=== PATIENT | male | born 1970 | race African-American/Black ===

== ENCOUNTER 2017-06-16 15:14 | Inpatient (IN) | payer OTHER ==
[2017-06-16 17:30] VITALS: BMI 43.3
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
[2017-06-16] MEDS ORDERED: MENTHOL/PHENOL 1 EACH UD MM PRN (19:00)
[2017-06-16] MEDS ORDERED: MAGNESIUM CITRATE 300 ML BOTTLE PO PRN (19:00)
[2017-06-16] MEDS ORDERED: NICOTINE POLACRILEX 4 MG GUM BC PRN (19:00)
[2017-06-16] MEDS ORDERED: P-EPHED 60MG/TRIPROLIDI 2.5MG TABLET PO PRN (19:00)
[2017-06-16] MEDS ORDERED: IBUPROFEN 400 MG TABLET (FP) PO PRN (19:00)
[2017-06-16] MEDS ORDERED: hydrOXYzine PAMOATE 50 MG CAPSULE (FP) PO PRN (19:00)
[2017-06-16] MEDS ORDERED: diphenhydrAMINE HCL 50 MG CAPSULE PO PRN (19:00)
[2017-06-16] MEDS ORDERED: ACETAMINOPHEN 325 MG TABLET (FP) PO PRN (19:00)
[2017-06-16] MEDS ORDERED: LOPERAMIDE HCL 2 MG CAPSULE PO PRN (19:00)
[2017-06-16] MEDS ORDERED: guaiFENesin/D-METHORPHAN HB 10 ML UNIT-DOSE CUPS PO PRN (19:00)
[2017-06-16] MEDS ORDERED: MAG HYDROX/AL HYDROX/SIMETH 30 ML UNIT-DOSE CUP PO PRN (19:00)
[2017-06-16] MEDS: THIAMINE HCL 100 MG TABLET (FP) PO SCH (23:11)
[2017-06-16 23:23] LABS: URINE APPEARANCE CLEAR; URINE BILIRUBIN NEGATIVE (NEGATIVE); URINE BLOOD NEGATIVE (NEGATIVE); URINE COLOR AMBER; URINE GLUCOSE (UA) NEGATIVE (NEGATIVE); URINE KETONE NEGATIVE (NEGATIVE); URINE LEUK ESTERASE NEGATIVE (NEGATIVE); URINE NITRITE NEGATIVE (NEGATIVE); URINE PROTEIN NEGATIVE (NEGATIVE); URINE UROBILINOGEN 4.0 E.U/dl mg/dL (0.2-1.0)
--- NOTE | 2017-06-17 09:57 | EKG ---
Test Reason : Blood Pressure : / mmHG Vent. Rate : 081 BPM Atrial Rate : 081 BPM P-R Int : 182 ms QRS Dur : 098 ms QT Int : 400 ms P-R-T Axes : 060 031 038 degrees QTc Int : 464 ms NORMAL SINUS RHYTHM NORMAL ECG NO PREVIOUS ECGS AVAILABLE Confirmed by PRADEEP SHAW MD ([id number]) on 06/17/2017 9:57:17 AM Referred By: Confirmed By:PRADEEP SHAW MD
[2017-06-17] MEDS: NICOTINE 21 MG/24 HOURS TOPICAL PATCH TD SCH (09:58)
[2017-06-17] MEDS: PRENATAL VITAMINS W/ FOLIC ACID TABLET (FP) PO SCH (09:58)
--- NOTE | 2017-06-17 13:42 | HP ---
Psychiatrist Admission - Data Date of interview: 06/17/17 Admission source: [facility] Identifying data: THis is the first 5n inpatient rehabilitation admission for this 47 year old single unemployed and domiciled AA male. Medical History: Reports a good physical health, smokes cigarettes 1 PPD. Psychiatric History: Patient denies. Physical/Sexual Abuse/Trauma History: Patient denies. 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 Vital Signs: Vital Signs - 24 hr 06/16/17 06/16/17 06/16/17 17:26 22:33 23:47 Temperature 98.6 F 98.6 F 98.6 F Pulse Rate 89 101 H 101 H Respiratory 20 20 20 Rate Blood Pressure 146/89 140/84 140/84 06/17/17 06/17/17 06/17/17 00:34 03:30 06:56 Temperature 97.8 F Pulse Rate 82 Respiratory 16 18 20 Rate Blood Pressure 121/70 Allergies/Adverse Reactions: Allergies Allergy/AdvReac Type Severity Reaction Status Date / Time No Known Allergies Allergy Verified 06/16/17 23:10 Date of last physical exam: 06/16/17 Concur with the findings of this exam: Yes - Substance Abuse/Tx History Hx Alcohol Use: Yes (started at age of 13, daily 3-6 packs beer daily) Hx Substance Use: Yes Substance Use Type: Cocaine (smoking crack daily $300, started at ge of 15) Hx Substance Use Treatment: Yes ([facility]) Mental Status Exam - Mental Status Exam Alert and Oriented to: Time, Place, Person Cognitive Function: Good Patient Appearance: Well Groomed Mood: Hopeful Affect: Appropriate, Mood Congruent Patient Behavior: Appropriate, Cooperative Speech Pattern: Clear, Appropriate Voice Loudness: Normal Thought Process: Intact, Goal Oriented Thought Disorder: Not Present Hallucinations: Denies Suicidal Ideation: Denies Homicidal Ideation: Denies Insight/Judgement: Fair Sleep: Well Appetite: Good Muscle strength/Tone: Normal Gait/Station: Normal Psychiatric Findings - Problem List ([place] 1, 2,3) (1) Nicotine dependence Current Visit: Yes Status: Acute Qualifiers: Nicotine product type: cigarettes Substance use status: in withdrawal Qualified Code(s): F17.213 - Nicotine dependence, cigarettes, with withdrawal; F17.213 - Nicotine dependence, cigarettes, with withdrawal (2) Cocaine dependence Current Visit: Yes Status: Acute (3) Alcohol dependence Current Visit: Yes Status: Acute - Initial Treatment Plan Initial Treatment Plan: monitor progress as needed.
[2017-06-17 15:45] LABS: MCHC 34.1 g/dl (32.0-35.9); MEAN CELL VOLUME 88.1 fl (80-96); MEAN PLT VOLUME 8.3 fl (7.5-11.1); PLATELET COUNT 269 K/MM3 (134-434); RDW 13.7 % (11.9-15.9); WHITE BLOOD COUNT 8.8 K/mm3 (4.0-10.0)
[2017-06-17 16:15] LABS: ALBUMIN 3.7 g/dl (3.4-5.0); ALK PHOS 133 U/L (45-117); ANION GAP 6 (8-16); BILIRUBIN,TOTAL 0.7 mg/dL (0.2-1.0); CALCIUM 8.7 mg/dL (8.5-10.1); CO2 29 mmol/L (21-32); CREATININE 1.2 mg/dL (0.7-1.3); GLUCOSE,RANDOM 127 mg/dL (74-106); SGOT/AST 23 U/L (15-37); SGPT/ALT 37 U/L (12-78); TOT PROT 7.3 g/dl (6.4-8.2)
[2017-06-17] MEDS: THIAMINE HCL 100 MG TABLET (FP) PO SCH (21:20)
[2017-06-18 00:29] LABS: HIV 1 & 2 AB NEGATIVE; HIV 1 AGp24 NEGATIVE
[2017-06-18] MEDS: PRENATAL VITAMINS W/ FOLIC ACID TABLET (FP) PO SCH (10:59)
[2017-06-18] MEDS: NICOTINE 21 MG/24 HOURS TOPICAL PATCH TD SCH (10:59)
[2017-06-18] MEDS ORDERED: TUBERCULIN PPD 5 TU/0.1ML VIAL ID ONE (17:04)
[2017-06-18] MEDS: THIAMINE HCL 100 MG TABLET (FP) PO SCH (21:34)
[2017-06-19] MEDS: NICOTINE 21 MG/24 HOURS TOPICAL PATCH TD SCH (09:45)
[2017-06-19] MEDS: PRENATAL VITAMINS W/ FOLIC ACID TABLET (FP) PO SCH (09:45)
[2017-06-19] MEDS: THIAMINE HCL 100 MG TABLET (FP) PO SCH (22:26)
[2017-06-20] MEDS: PRENATAL VITAMINS W/ FOLIC ACID TABLET (FP) PO SCH (10:11)
[2017-06-20] MEDS: NICOTINE 21 MG/24 HOURS TOPICAL PATCH TD SCH (10:11)
--- NOTE | 2017-06-20 18:02 | PN ---
S Progress Note Note: received nurse call that the patient has positive ppd chest x ray continue rehab
[2017-06-20] MEDS: THIAMINE HCL 100 MG TABLET (FP) PO SCH (21:19)
[2017-06-21] MEDS: NICOTINE 21 MG/24 HOURS TOPICAL PATCH TD SCH (09:12)
[2017-06-21] MEDS: PRENATAL VITAMINS W/ FOLIC ACID TABLET (FP) PO SCH (09:13)
[2017-06-21] MEDS: THIAMINE HCL 100 MG TABLET (FP) PO SCH (21:25)
[2017-06-22] MEDS: NICOTINE 21 MG/24 HOURS TOPICAL PATCH TD SCH (09:02)
[2017-06-22] MEDS: PRENATAL VITAMINS W/ FOLIC ACID TABLET (FP) PO SCH (09:02)
[2017-06-22] MEDS: THIAMINE HCL 100 MG TABLET (FP) PO SCH (21:58)
[2017-06-23] MEDS: NICOTINE 21 MG/24 HOURS TOPICAL PATCH TD SCH (11:31)
[2017-06-23] MEDS: PRENATAL VITAMINS W/ FOLIC ACID TABLET (FP) PO SCH (11:32)
[2017-06-23] MEDS: THIAMINE HCL 100 MG TABLET (FP) PO SCH (21:10)
[2017-06-24] MEDS: NICOTINE 21 MG/24 HOURS TOPICAL PATCH TD SCH (10:34)
[2017-06-24] MEDS: PRENATAL VITAMINS W/ FOLIC ACID TABLET (FP) PO SCH (10:34)
[2017-06-24] MEDS: THIAMINE HCL 100 MG TABLET (FP) PO SCH (21:28)
[2017-06-25] MEDS: NICOTINE 21 MG/24 HOURS TOPICAL PATCH TD SCH (10:09)
[2017-06-25] MEDS: PRENATAL VITAMINS W/ FOLIC ACID TABLET (FP) PO SCH (10:09)
[2017-06-25] MEDS: THIAMINE HCL 100 MG TABLET (FP) PO SCH (21:06)
[2017-06-26] MEDS: PRENATAL VITAMINS W/ FOLIC ACID TABLET (FP) PO SCH (09:57)
[2017-06-26] MEDS: NICOTINE 21 MG/24 HOURS TOPICAL PATCH TD SCH (09:57)
[2017-06-26] MEDS: MAGNESIUM HYDROX 2400MG/30ML ORAL SUSPENSION 30 ML CUP PO PRN (13:57)
[2017-06-26] MEDS: THIAMINE HCL 100 MG TABLET (FP) PO SCH (21:01)
[2017-06-27] MEDS: NICOTINE 21 MG/24 HOURS TOPICAL PATCH TD SCH (10:59)
[2017-06-27] MEDS: PRENATAL VITAMINS W/ FOLIC ACID TABLET (FP) PO SCH (10:59)
[2017-06-27] MEDS: THIAMINE HCL 100 MG TABLET (FP) PO SCH (21:09)
[2017-06-28] MEDS: PRENATAL VITAMINS W/ FOLIC ACID TABLET (FP) PO SCH (10:15)
[2017-06-28] MEDS: NICOTINE 21 MG/24 HOURS TOPICAL PATCH TD SCH (10:15)
[2017-06-28] MEDS: THIAMINE HCL 100 MG TABLET (FP) PO SCH (21:02)
[2017-06-29] MEDS: NICOTINE 21 MG/24 HOURS TOPICAL PATCH TD SCH (10:06)
[2017-06-29] MEDS: PRENATAL VITAMINS W/ FOLIC ACID TABLET (FP) PO SCH (10:06)
[2017-06-29] MEDS: MAGNESIUM HYDROX 2400MG/30ML ORAL SUSPENSION 30 ML CUP PO PRN (17:25)
[2017-06-29] MEDS: THIAMINE HCL 100 MG TABLET (FP) PO SCH (21:01)
[2017-06-30 06:38] VITALS: BP 131/95; PULSE 85; TEMP 98
--- NOTE | 2017-06-30 09:11 | PN ---
[facility] Progress Note Note: Patient has completed treatment today and was discharged today in stable condition, was referred to [facility].
== END 2017-06-30 07:20 | disposition home or self-care (01) | DRG 772 ==
LOC: YASAS 15:14 → Y5N 19:55
PROVIDERS: ADMIT Psychiatry & Neurology Psychiatry; ATTEND Psychiatry & Neurology Psychiatry
PROC: HZ42ZZZ Group Counseling for Substance Abuse Treatment, Cognitive-Behavioral (ICD-10-PCS; principal; 2017-06-16)
DX: F10.20 Alcohol dependence, uncomplicated (principal); F14.20 Cocaine dependence, uncomplicated; F17.213 Nicotine dependence, cigarettes, with withdrawal; R76.11 Nonspecific reaction to tuberculin skin test without active tuberculosis; E66.9 Obesity, unspecified; Z68.41 Body mass index [BMI] 40.0-44.9, adult
CPT/HCPCS: 36415; 71020-TC; 80053; 81003; 85027; 86593; 87389; 93005; 93010

== ENCOUNTER 2023-07-19 15:08 | Inpatient (IN) | payer OTHER ==
[2023-07-19 15:48] VITALS: BMI 39.3
[2023-07-19] MEDS ORDERED: BENZONATATE 200 MG CAPSULE PO PRN (18:30)
[2023-07-19] MEDS ORDERED: POLYETHYLENE GLYCOL (HEALTHYLAX) 3350 17 GM PACKET PO PRN (18:30)
[2023-07-19] MEDS ORDERED: IBUPROFEN 600 MG TABLET (FP) PO PRN (18:30)
[2023-07-19] MEDS ORDERED: IBUPROFEN 400 MG TABLET (FP) PO PRN (18:30)
[2023-07-19] MEDS ORDERED: BISMUTH SUBSALICYLATE 524 MG/30 ML PO PRN (18:30)
[2023-07-19] MEDS ORDERED: ACETAMINOPHEN 325 MG TABLET (FP) PO PRN (18:30)
[2023-07-19] MEDS ORDERED: MAG HYDROX/AL HYDROX/SIMETH 30 ML UNIT-DOSE CUP PO PRN (18:30)
[2023-07-19] MEDS ORDERED: hydrOXYzine PAMOATE 25 MG CAPSULE (FP) PO PRN (18:30)
[2023-07-19] MEDS ORDERED: NALOXONE HCL 0.4 MG/ML VIAL IM PRN (18:30)
[2023-07-19] MEDS ORDERED: METHOCARBAMOL 500 MG TABLET PO PRN (18:30)
[2023-07-19] MEDS ORDERED: DICYCLOMINE HCL 10 MG CAPSULE PO PRN (18:30)
[2023-07-19] MEDS ORDERED: guaiFENesin 600 MG TABLET.ER (FP) PO PRN (18:30)
[2023-07-19] MEDS ORDERED: LOPERAMIDE HCL 2 MG CAPSULE PO PRN (18:30)
[2023-07-19] MEDS ORDERED: chlordiazePOXIDE HCL 25 MG CAPSULE PO PRN (18:30)
[2023-07-19] MEDS ORDERED: BENZOCAINE/MENTHOL (CHLORASEPTIC ) LOZENGE MM PRN (18:30)
[2023-07-19] MEDS ORDERED: ONDANSETRON *ODT* 4 MG TABLET SL PRN (18:30)
[2023-07-19] MEDS ORDERED: NALOXONE HCL (KLOXXADO) 8 MG SPRAY NS PRN (18:30)
[2023-07-19] MEDS: CLOPIDOGREL BISULFATE 75 MG TABLET (FP) PO SCH (20:06)
[2023-07-19] MEDS: chlordiazePOXIDE HCL 25 MG CAPSULE PO SCH (22:43)
[2023-07-19] MEDS: MELATONIN 5 MG TABLETS PO SCH (22:44)
[2023-07-19] MEDS: THIAMINE HCL 100 MG TABLET (FP) PO SCH (22:45)
[2023-07-20] MEDS: chlordiazePOXIDE HCL 25 MG CAPSULE PO SCH ×4 (05:12→22:33)
[2023-07-20] MEDS ORDERED: ALBUTEROL SO4 0.083% IH SOL 2.5 MG/3 ML VIAL.NEB. NEB PRN (09:01)
[2023-07-20 09:51] LABS: HEMATOCRIT 36.1 % (35.4-49); HEMOGLOBIN 12.3 GM/dL (11.7-16.9); MCH 29.8 pg (25.7-33.7); MCHC 33.9 g/dl (32.0-35.9); MEAN CELL VOLUME 87.8 fl (80-96); MEAN PLT VOLUME 7.8 fl (7.5-11.1); PLATELET COUNT 227 10^3/uL (134-434); RBC 4.12 M/mm3 (4.00-5.60); RDW 13.9 % (11.9-15.9); WHITE BLOOD COUNT 9.4 K/mm3 (4.0-10.0)
[2023-07-20 10:05] LABS: CHLORIDE 106 mmol/L (98-107); POTASSIUM 3.6 mmol/L (3.5-5.1); SODIUM 141 mmol/L (136-145)
[2023-07-20 10:09] LABS: ALBUMIN 3.1 g/dl (3.4-5.0); ANION GAP 7 mmol/L (4-13); BLOOD UREA NITROGEN 11.1 mg/dL (7-18); CO2 28 mmol/L (21-32); GLUCOSE,RANDOM 104 mg/dL (74-106)
[2023-07-20 10:12] LABS: CREATININE 0.9 mg/dL (0.55-1.3); SGPT/ALT 51 U/L (13-61)
[2023-07-20 10:13] LABS: SGOT/AST 114 U/L (15-37)
[2023-07-20 10:14] LABS: BILIRUBIN,TOTAL 0.9 mg/dL (0.2-1)
[2023-07-20 10:15] LABS: ALK PHOS 96 U/L (45-117)
[2023-07-20] MEDS: CLOPIDOGREL BISULFATE 75 MG TABLET (FP) PO SCH (10:20)
[2023-07-20] MEDS: PRENATAL VITAMINS W/ FOLIC ACID TABLET (FP) PO SCH (10:21)
[2023-07-20] MEDS: ALBUTEROL SO4 HFA INHALER IH PRN (17:40)
[2023-07-20] MEDS: MAGNESIUM HYDROX 2400MG/30ML ORAL SUSPENSION 30 ML CUP PO PRN (17:43)
[2023-07-20] MEDS: MELATONIN 5 MG TABLETS PO SCH (22:33)
[2023-07-20] MEDS: THIAMINE HCL 100 MG TABLET (FP) PO SCH (22:33)
[2023-07-21] MEDS: chlordiazePOXIDE HCL 25 MG CAPSULE PO SCH ×4 (06:09→22:58)
[2023-07-21] MEDS: PRENATAL VITAMINS W/ FOLIC ACID TABLET (FP) PO SCH (10:18)
[2023-07-21] MEDS: guaiFENesin 200 MG/10 ML 10 ML UNIT-DOSE CUPS PO PRN (10:18)
[2023-07-21] MEDS: CLOPIDOGREL BISULFATE 75 MG TABLET (FP) PO SCH (10:18)
[2023-07-21] MEDS: THIAMINE HCL 100 MG TABLET (FP) PO SCH (22:58)
[2023-07-21] MEDS: MELATONIN 5 MG TABLETS PO SCH (22:58)
[2023-07-22] MEDS ORDERED: chlordiazePOXIDE HCL 10 MG CAPSULE PO PRN
[2023-07-22] MEDS: chlordiazePOXIDE HCL 10 MG CAPSULE PO SCH ×4 (05:17→23:16)
[2023-07-22] MEDS: ALBUTEROL SO4 HFA INHALER IH PRN (05:18)
[2023-07-22] MEDS: guaiFENesin 200 MG/10 ML 10 ML UNIT-DOSE CUPS PO PRN ×2 (05:20→10:25)
[2023-07-22] MEDS: CLOPIDOGREL BISULFATE 75 MG TABLET (FP) PO SCH (10:25)
[2023-07-22] MEDS: PRENATAL VITAMINS W/ FOLIC ACID TABLET (FP) PO SCH (10:25)
[2023-07-22] MEDS: THIAMINE HCL 100 MG TABLET (FP) PO SCH (23:16)
[2023-07-22] MEDS: MELATONIN 5 MG TABLETS PO SCH (23:16)
[2023-07-23] MEDS: chlordiazePOXIDE HCL 10 MG CAPSULE PO SCH ×2 (06:00→17:37)
[2023-07-23] MEDS: CLOPIDOGREL BISULFATE 75 MG TABLET (FP) PO SCH (10:43)
[2023-07-23] MEDS: PRENATAL VITAMINS W/ FOLIC ACID TABLET (FP) PO SCH (10:43)
[2023-07-23] MEDS: guaiFENesin 200 MG/10 ML 10 ML UNIT-DOSE CUPS PO PRN (17:35)
[2023-07-23] MEDS: MAGNESIUM HYDROX 2400MG/30ML ORAL SUSPENSION 30 ML CUP PO PRN (17:35)
[2023-07-23] MEDS: MELATONIN 5 MG TABLETS PO SCH (22:54)
[2023-07-23] MEDS: THIAMINE HCL 100 MG TABLET (FP) PO SCH (22:55)
[2023-07-24] MEDS ORDERED: chlordiazePOXIDE HCL 10 MG CAPSULE PO ONE (05:00)
[2023-07-24 06:03] VITALS: RESP 18
[2023-07-24 09:17] VITALS: BP 129/77; PULSE 81; TEMP 97.6
[2023-07-24] MEDS: guaiFENesin 200 MG/10 ML 10 ML UNIT-DOSE CUPS PO PRN (10:48)
[2023-07-24] MEDS: CLOPIDOGREL BISULFATE 75 MG TABLET (FP) PO SCH (10:48)
[2023-07-24] MEDS: PRENATAL VITAMINS W/ FOLIC ACID TABLET (FP) PO SCH (10:49)
== END 2023-07-24 13:17 | disposition home or self-care (01) | DRG 774 ==
LOC: SUATTDRO 15:08 → YASAS 15:08 → Y6N 19:08
PROVIDERS: ADMIT Allergy & Immunology; ATTEND Surgery
PROC: HZ2ZZZZ Detoxification Services for Substance Abuse Treatment (ICD-10-PCS; principal; 2023-07-19)
DX: F10.230 Alcohol dependence with withdrawal, uncomplicated (principal); F14.20 Cocaine dependence, uncomplicated; F17.210 Nicotine dependence, cigarettes, uncomplicated; J44.9 Chronic obstructive pulmonary disease, unspecified; Z86.73 Personal history of transient ischemic attack (TIA), and cerebral infarction without residual deficits
CPT/HCPCS: 36415; 80053; 80307; 85027; 86780; 87635